=== PATIENT | female | born 1975 | race African-American/Black ===

== ENCOUNTER 2016-07-27 21:49 | Emergency (ER) | payer BC ==
[~2016-07-27] VITALS: Ht 162.6 cm; Wt 77.7 kg
[~2016-07-27 21:49] MED LIST: Aspirin E.C. PO; BENTYL20 MG PO; COLACE100 MG PO; COMPAZINE10 MG PO; Colace PO; Coreg; DESYREL12.5 MG PO; Desyrel PO; Diflucan PO; Feosol PO; LANTUS 10100 UNITS/ SQ; LANTUS 3 M100 UNITS/ SC; LANTUS 3 M100 UNITS1; LANTUS 3 M100 UNITS1 SC; LANTUS 3 M100 UNITS1 SQ; LEVOTHROID175 MCG PO; LEVOTHYROXINE112 MCG PO; LEVOXYL112 MCG PO; LOPRESSOR12.5 MG PO; LOPRESSOR25 MG PO; LOPRESSOR50 MG PO; Levaquin PO; Levothroid,Synthroid PO; Lopressor PO; NOVOLOG (UNITS1 UNIT SQ; NOVOLOG 10100 UNITS/ SC; NOVOLOG INSULIN PUMP SC; NOVOLOG MI100 UNIT/4 SC; NOVOLOG PE100 UNITS/; NOVOLOG PE100 UNITS/ SC; NOVOLOG PEN SC; NovoLOG, HumaLOG SC; PHENERGAN25 MG PR; PRINIVIL10 MG PO; PROTONIX40 MG PO; Phenergan PO; Protonix PO; REGLAN10 MG PO; Reglan PO; SIMVASTATIN10 MG PO; TAPAZOLE10 MG PO; Tapazole PO; Toprol XL PO; VITAMIN D IM; VITAMIN D10000 UNIT PO; VITAMIN D250000 UNIT PO; Vicodin,Norco 5/325 PO; ZESTRIL10 MG PO; ZOCOR10 MG PO; Zestril,Prinivil PO; Zocor PO; Zofran PO; predniSONE PO; prinivil; simvastatin; tapazole
[2016-07-27 23:14] LABS: BASOPHIL COUNT 0.1 K/uL (0-0.1); EOSINOPHIL (%) 8.5 % (0-5); EOSINOPHIL COUNT 0.7 K/uL (0-0.3); HEMATOCRIT 34.1 % (36.0-46.0); IMMATURE GRANULOCYTE (%) 0.3 % (0.0-0.7); INSTRUMENT ABS NEUTROPHIL CT 4.1 K/uL; LYMPHOCYTE COUNT 2.4 K/uL (1.0-2.8); MCH 29.7 PG (29.0-34.0); MCHC 33.7 G/DL (30.0-36.0); MCV 88.1 FL (83-99); MEAN PLAT.VOLUME 11.3 uM^3 (9.5-12.4); MONOCYTE (%) 7.4 % (3-12); MONOCYTE COUNT 0.6 K/uL (0-0.8); NEUTROPHIL (%) 51.7 % (45-76); NEUTROPHIL COUNT 4.1 K/uL (1.8-6.4); PLATELET COUNT 204 K/uL (156-360); RBC DIS.WIDTH-CV 13.2 % (11.8-14.6); RBC DIS.WIDTH-SD 42.4 % (39-53); RED BLOOD COUNT 3.87 M/uL (3.80-5.20); WHITE BLOOD COUNT 7.9 K/uL (4.1-10.2)
[2016-07-27 23:25] LABS: CHLORIDE 107 mEq/L (99-109); POTASSIUM 4.8 mEq/L (3.7-5.4); SODIUM 136 mEq/L (136-147)
[2016-07-27 23:27] LABS: GLUCOSE 182 mg/dL (70-99)
[2016-07-27 23:28] LABS: ANION GAP 10 MEQ/L (2-14)
[2016-07-27 23:31] LABS: GFR ESTIMATE (CALCULATED) > 59 mL/min/
[2016-07-27 23:32] LABS: UREA NITROGEN (BUN) 16 mg/dL (9-23)
[2016-07-27 23:39] LABS: QUANTITATIVE HCG < 4.0 MIU/ML
[2016-07-28] MEDS ORDERED: PERCOCET 5/31 TABLET PO (01:07)
[2016-07-28 02:10] VITALS: BP 179/96
== END 2016-07-28 02:12 | disposition home or self-care (01) ==
LOC: EME 21:49
PROVIDERS: Emergency Medicine
DX: R51 Headache (principal); E11.43 Type 2 diabetes mellitus with diabetic autonomic (poly)neuropathy; K31.84 Gastroparesis; G43.909 Migraine, unspecified, not intractable, without status migrainosus; E03.9 Hypothyroidism, unspecified; I42.9 Cardiomyopathy, unspecified
CPT/HCPCS: 70450; 70486; 80048; 84702; 85025; 99281; 99285; J3010

== ENCOUNTER 2016-07-29 17:30 | Emergency (ER) | payer BC ==
[~2016-07-29] VITALS: Ht 162.6 cm; Wt 76.7 kg
[~2016-07-29 17:30] MED LIST changes: +PERCOCET 5/31 TABLET PO
[2016-07-29 18:54] LABS: HEMATOCRIT 36.4 % (36.0-46.0); MCH 29.1 PG (29.0-34.0); MCHC 33.2 G/DL (30.0-36.0); MCV 87.5 FL (83-99); RBC DIS.WIDTH-CV 13.2 % (11.8-14.6); RBC DIS.WIDTH-SD 41.9 % (39-53); RED BLOOD COUNT 4.16 M/uL (3.80-5.20); WHITE BLOOD COUNT 9.1 K/uL (4.1-10.2)
[2016-07-29 19:03] LABS: CHLORIDE 105 mEq/L (99-109); POTASSIUM 4.2 mEq/L (3.7-5.4); SODIUM 137 mEq/L (136-147)
[2016-07-29 19:04] LABS: GLUCOSE 191 mg/dL (70-99)
[2016-07-29 19:06] LABS: ANION GAP 10 MEQ/L (2-14)
[2016-07-29 19:08] LABS: GFR ESTIMATE (CALCULATED) > 59 mL/min/
[2016-07-29 19:09] LABS: UREA NITROGEN (BUN) 16 mg/dL (9-23)
[2016-07-29 19:35] LABS: ERTH.SED.RATE 42 MM/HR (0-20)
[2016-07-29 19:46] LABS: MEAN PLAT.VOLUME 11.4 uM^3 (9.5-12.4); PLAT.SUFFICIENCY ADEQUATE; PLATELET COUNT 252 K/uL (156-360)
[2016-07-29 19:55] LABS: C-REACTIVE PROTEIN 1.3 MG/L (0-10)
[2016-07-29 20:05] LABS: SAMPLE HEMOLYSIS CHECK 0; SAMPLE ICTERIC CHECK 0; SAMPLE LIPEMIA CHECK 0
[2016-07-29 20:25] LABS: QUANTITATIVE HCG < 4.0 MIU/ML
[2016-07-29 20:48] VITALS: BP 166/89
== END 2016-07-29 20:57 | disposition home or self-care (01) ==
LOC: EME 17:30
PROVIDERS: Physician Assistant Medical
DX: R51 Headache (principal); R50.9 Fever, unspecified; R11.0 Nausea; H92.09 Otalgia, unspecified ear; Z79.82 Long term (current) use of aspirin
CPT/HCPCS: 80048; 84702; 85027; 85651; 86140; 99281; 99285; J1200; J1885; J2765; J7030

== ENCOUNTER 2016-07-31 20:11 | Inpatient (IN) | payer BC ==
[~2016-07-31] VITALS: Ht 162.6 cm; Wt 78.2 kg
[2016-07-31 22:19] LABS: BASOPHIL COUNT 0.1 K/uL (0-0.1); EOSINOPHIL (%) 7.6 % (0-5); EOSINOPHIL COUNT 0.8 K/uL (0-0.3); HEMATOCRIT 30.3 % (36.0-46.0); IMMATURE GRANULOCYTE (%) 0.3 % (0.0-0.7); INSTRUMENT ABS NEUTROPHIL CT 4.7 K/uL; MCH 29.3 PG (29.0-34.0); MCHC 33.7 G/DL (30.0-36.0); MCV 87.1 FL (83-99); MEAN PLAT.VOLUME 11.2 uM^3 (9.5-12.4); MONOCYTE (%) 8.1 % (3-12); MONOCYTE COUNT 0.9 K/uL (0-0.8); NEUTROPHIL (%) 45.2 % (45-76); NEUTROPHIL COUNT 4.7 K/uL (1.8-6.4); PLATELET COUNT 256 K/uL (156-360); RBC DIS.WIDTH-CV 12.8 % (11.8-14.6); RBC DIS.WIDTH-SD 40.5 % (39-53); RED BLOOD COUNT 3.48 M/uL (3.80-5.20); WHITE BLOOD COUNT 10.4 K/uL (4.1-10.2)
[2016-07-31 22:31] LABS: ERTH.SED.RATE 29 MM/HR (0-20)
[2016-07-31 22:33] LABS: POTASSIUM 3.8 mEq/L (3.7-5.4)
[2016-07-31 22:34] LABS: CHLORIDE 89 mEq/L (99-109); SODIUM 120 mEq/L (136-147)
[2016-07-31 22:35] LABS: GLUCOSE 305 mg/dL (70-99)
[2016-07-31 22:36] LABS: ANION GAP 12 MEQ/L (2-14)
[2016-07-31 22:39] LABS: GFR ESTIMATE (CALCULATED) > 59 mL/min/; UREA NITROGEN (BUN) 12 mg/dL (9-23)
[2016-07-31 23:15] LABS: C-REACTIVE PROTEIN < 1.0 MG/L (0-10)
[2016-08-01] VITALS (7 sets, daily range): BP systolic 132–193; BP diastolic 70–125
[2016-08-01 01:29] LABS: CHLORIDE 88 mEq/L (99-109); POTASSIUM 3.4 mEq/L (3.7-5.4)
[2016-08-01 01:31] LABS: GLUCOSE 294 mg/dL (70-99)
[2016-08-01 01:33] LABS: TOTAL BILIRUBIN 0.4 mg/dL (0.0-1.0)
[2016-08-01 01:34] LABS: ALKALINE PHOSPHATASE 55 IU/L (3-129)
[2016-08-01 01:35] LABS: ANION GAP 10 MEQ/L (2-14); GFR ESTIMATE (CALCULATED) > 59 mL/min/
[2016-08-01 01:36] LABS: DIRECT BILIRUBIN 0.2 mg/dL (0.0-0.3); UREA NITROGEN (BUN) 11 mg/dL (9-23)
[2016-08-01 01:41] LABS: SODIUM 118 mEq/L (136-147)
[2016-08-01 02:20] LABS: POINT-OF-CARE METER ID UU14162513
[2016-08-01 02:40] LABS: URIC ACID 4.1 mg/dL (3.1-9.2)
[2016-08-01] MEDS ORDERED: LEVOTHYROXINE200 MC1 PO ×2 (04:06→17:47)
[2016-08-01] MEDS ORDERED: PRAVACHOL10 MG PO (04:08)
[2016-08-01 04:19] LABS: ADD MIUA? YES; BILIRUBIN NEGATIVE; BLOOD LARGE; COLOR YELLOW ((YELLOW)); GLUCOSE (STRIP) >=500; KETONES 20; LEUKOCYTES NEGATIVE; NITRITE NEGATIVE; PROTEIN (STRIP) 100; SPECIFIC GRAVITY 1.007 (1.000-1.030); UROBILINOGEN 0.2 MG/DL (0.2-1.0)
[2016-08-01 04:24] LABS: BACTERIA NONE SEEN /HPF; EPITHELIAL CELLS RARE /HPF; MUCUS NONE SEEN /LPF; RED BLOOD CELLS TNTC /HPF (0-5); WHITE BLOOD CELLS 20-30 /HPF (0-5)
[2016-08-01 06:58] LABS: ANION GAP 13 MEQ/L (2-14); CHLORIDE 88 MEQ/L (99-109); GFR ESTIMATE (CALCULATED) > 59 mL/min/; GLUCOSE 341 mg/dL (70-99); SAMPLE HEMOLYSIS CHECK 1; SAMPLE ICTERIC CHECK 0; SAMPLE LIPEMIA CHECK 0; UREA NITROGEN (BUN) 11 mg/dL (9-23)
[2016-08-01 07:14] LABS: HEMATOCRIT 31.9 % (36.0-46.0); MCHC 33.9 G/DL (30.0-36.0); MCV 85.5 FL (83-99); MEAN PLAT.VOLUME 12.1 uM^3 (9.5-12.4); PLATELET COUNT 252 K/uL (156-360); RBC DIS.WIDTH-CV 12.4 % (11.8-14.6); RBC DIS.WIDTH-SD 38.5 % (39-53); RED BLOOD COUNT 3.73 M/uL (3.80-5.20); WHITE BLOOD COUNT 7.8 K/uL (4.1-10.2)
[2016-08-01 07:17] LABS: POTASSIUM 4.6 MEQ/L (3.7-5.4); SODIUM 118 MEQ/L (136-147)
[2016-08-01 08:54] LABS: POINT-OF-CARE METER ID UU14162513
[2016-08-01 12:10] LABS: ANION GAP 19 MEQ/L (2-14); CHLORIDE 87 MEQ/L (99-109); GFR ESTIMATE (CALCULATED) 58 mL/min/; GLUCOSE 439 mg/dL (70-99); POTASSIUM 3.3 MEQ/L (3.7-5.4); SAMPLE HEMOLYSIS CHECK 0; SAMPLE ICTERIC CHECK 0; SAMPLE LIPEMIA CHECK 0; SODIUM 123 MEQ/L (136-147); UREA NITROGEN (BUN) 14 mg/dL (9-23)
[2016-08-01 12:22] LABS: POINT-OF-CARE METER ID UU13113803
[2016-08-01 12:45] LABS: METH RESISTANT S AUREUS PCR NEGATIVE (NEGATIVE)
[2016-08-01 12:47] LABS: PROBE CHECK PASS; SPECIMEN PROCESSING CONTROL PASS
[2016-08-01 13:54] LABS: POINT-OF-CARE METER ID UU14162513
[2016-08-01 14:48] LABS: ANION GAP 12 MEQ/L (2-14); CHLORIDE 92 MEQ/L (99-109); SAMPLE HEMOLYSIS CHECK 0; SAMPLE ICTERIC CHECK 0; SAMPLE LIPEMIA CHECK 0; SODIUM 125 MEQ/L (136-147)
[2016-08-01 14:54] LABS: GFR ESTIMATE (CALCULATED) > 59 mL/min/; GLUCOSE 370 mg/dL (70-99); UREA NITROGEN (BUN) 16 mg/dL (9-23)
[2016-08-01 16:31] LABS: ANION GAP 9 MEQ/L (2-14); CHLORIDE 92 MEQ/L (99-109); GFR ESTIMATE (CALCULATED) > 59 mL/min/; GLUCOSE 358 mg/dL (70-99); POTASSIUM 4.8 MEQ/L (3.7-5.4); SAMPLE HEMOLYSIS CHECK 0; SAMPLE ICTERIC CHECK 0; SAMPLE LIPEMIA CHECK 0; SODIUM 123 MEQ/L (136-147); UREA NITROGEN (BUN) 17 mg/dL (9-23)
[2016-08-01 16:39] LABS: ANION GAP 12 MEQ/L (2-14); CHLORIDE 92 MEQ/L (99-109); GFR ESTIMATE (CALCULATED) > 59 mL/min/; GLUCOSE 370 mg/dL (70-99); SAMPLE HEMOLYSIS CHECK 0; SAMPLE ICTERIC CHECK 0; SAMPLE LIPEMIA CHECK 0; SODIUM 125 MEQ/L (136-147); UREA NITROGEN (BUN) 16 mg/dL (9-23)
[2016-08-01] MEDS ORDERED: LO-DOSE ASPIRIN81 M1 PO (17:50)
[2016-08-01] MEDS ORDERED: AMOX TR-K CLV1 EAC4 PO (17:52)
[2016-08-01] MEDS ORDERED: INSULIN PUMP SCCONT (17:53)
[2016-08-01 18:38] LABS: ANION GAP 12 MEQ/L (2-14); CHLORIDE 93 MEQ/L (99-109); GFR ESTIMATE (CALCULATED) > 59 mL/min/; GLUCOSE 351 mg/dL (70-99); SAMPLE HEMOLYSIS CHECK 0; SAMPLE ICTERIC CHECK 0; SAMPLE LIPEMIA CHECK 0; SODIUM 126 MEQ/L (136-147); UREA NITROGEN (BUN) 17 mg/dL (9-23)
[2016-08-01 18:54] LABS: POTASSIUM 3.8 MEQ/L (3.7-5.4)
[2016-08-01 20:15] LABS: POINT-OF-CARE METER ID UU13113731
[2016-08-01 20:56] LABS: ANION GAP 14 MEQ/L (2-14); CHLORIDE 94 MEQ/L (99-109); GFR ESTIMATE (CALCULATED) > 59 mL/min/; GLUCOSE 359 mg/dL (70-99); POTASSIUM 3.9 MEQ/L (3.7-5.4); SAMPLE HEMOLYSIS CHECK 0; SAMPLE ICTERIC CHECK 0; SAMPLE LIPEMIA CHECK 0; SODIUM 128 MEQ/L (136-147); UREA NITROGEN (BUN) 17 mg/dL (9-23)
[2016-08-01 22:20] LABS: ANION GAP 13 MEQ/L (2-14); CHLORIDE 94 MEQ/L (99-109); GFR ESTIMATE (CALCULATED) > 59 mL/min/; GLUCOSE 305 mg/dL (70-99); POTASSIUM 3.8 MEQ/L (3.7-5.4); SAMPLE HEMOLYSIS CHECK 0; SAMPLE ICTERIC CHECK 0; SAMPLE LIPEMIA CHECK 0; SODIUM 126 MEQ/L (136-147); UREA NITROGEN (BUN) 17 mg/dL (9-23)
[2016-08-02] VITALS (7 sets, daily range): BP systolic 143–187; BP diastolic 75–93
[2016-08-02 01:18] LABS: POTASSIUM 3.8 mEq/L (3.7-5.4); SODIUM 130 mEq/L (136-147)
[2016-08-02 01:20] LABS: GLUCOSE 321 mg/dL (70-99)
[2016-08-02 01:21] LABS: ANION GAP 12 MEQ/L (2-14); CHLORIDE 98 mEq/L (99-109)
[2016-08-02 01:24] LABS: GFR ESTIMATE (CALCULATED) > 59 mL/min/
[2016-08-02 01:25] LABS: UREA NITROGEN (BUN) 17 mg/dL (9-23)
[2016-08-02 03:00] LABS: CHLORIDE 98 mEq/L (99-109); POTASSIUM 3.9 mEq/L (3.7-5.4); SODIUM 130 mEq/L (136-147)
[2016-08-02 03:01] LABS: GLUCOSE 292 mg/dL (70-99)
[2016-08-02 03:03] LABS: ANION GAP 12 MEQ/L (2-14)
[2016-08-02 03:05] LABS: GFR ESTIMATE (CALCULATED) > 59 mL/min/
[2016-08-02 03:06] LABS: UREA NITROGEN (BUN) 17 mg/dL (9-23)
[2016-08-02 05:50] LABS: EOSINOPHIL (%) 0 % (0-5); HEMATOCRIT 30.6 % (36.0-46.0); IMMATURE GRANULOCYTE (%) 0.2 % (0.0-0.7); INSTRUMENT ABS NEUTROPHIL CT 6.4 K/uL; LYMPHOCYTE COUNT 1.2 K/uL (1.0-2.8); MCH 28.7 PG (29.0-34.0); MCV 84.5 FL (83-99); MEAN PLAT.VOLUME 11.2 uM^3 (9.5-12.4); MONOCYTE (%) 6.5 % (3-12); MONOCYTE COUNT 0.5 K/uL (0-0.8); NEUTROPHIL (%) 78.5 % (45-76); NEUTROPHIL COUNT 6.4 K/uL (1.8-6.4); PLATELET COUNT 252 K/uL (156-360); RBC DIS.WIDTH-CV 12.5 % (11.8-14.6); RED BLOOD COUNT 3.62 M/uL (3.80-5.20); WHITE BLOOD COUNT 8.2 K/uL (4.1-10.2)
[2016-08-02 06:13] LABS: ANION GAP 11 MEQ/L (2-14); CHLORIDE 97 MEQ/L (99-109); GFR ESTIMATE (CALCULATED) > 59 mL/min/; GLUCOSE 289 mg/dL (70-99); POTASSIUM 3.9 MEQ/L (3.7-5.4); SAMPLE HEMOLYSIS CHECK 0; SAMPLE ICTERIC CHECK 0; SAMPLE LIPEMIA CHECK 0; SODIUM 131 MEQ/L (136-147); UREA NITROGEN (BUN) 17 mg/dL (9-23)
[2016-08-02 09:07] LABS: ANION GAP 9 MEQ/L (2-14); CHLORIDE 98 MEQ/L (99-109); GFR ESTIMATE (CALCULATED) > 59 mL/min/; GLUCOSE 239 mg/dL (70-99); SAMPLE HEMOLYSIS CHECK 0; SAMPLE ICTERIC CHECK 0; SAMPLE LIPEMIA CHECK 0; SODIUM 132 MEQ/L (136-147); UREA NITROGEN (BUN) 17 mg/dL (9-23)
[2016-08-02 11:33] LABS: POINT-OF-CARE METER ID UU13113731
[2016-08-02 23:55] LABS: POINT-OF-CARE METER ID UU14174217
[2016-08-03] VITALS (13 sets, daily range): BP systolic 0–177; BP diastolic 0–103
[2016-08-03 06:28] LABS: EOSINOPHIL (%) 0 % (0-5); HEMATOCRIT 29.3 % (36.0-46.0); IMMATURE GRANULOCYTE (%) 0.4 % (0.0-0.7); LYMPHOCYTE COUNT 1.2 K/uL (1.0-2.8); MCH 29.5 PG (29.0-34.0); MCHC 33.8 G/DL (30.0-36.0); MCV 87.2 FL (83-99); MONOCYTE (%) 7.3 % (3-12); MONOCYTE COUNT 0.8 K/uL (0-0.8); NEUTROPHIL (%) 81.6 % (45-76); PLATELET COUNT 260 K/uL (156-360); RBC DIS.WIDTH-CV 13.3 % (11.8-14.6); RBC DIS.WIDTH-SD 41.5 % (39-53); RED BLOOD COUNT 3.36 M/uL (3.80-5.20)
[2016-08-03 07:07] LABS: ANION GAP 10 MEQ/L (2-14); CHLORIDE 101 MEQ/L (99-109); GFR ESTIMATE (CALCULATED) > 59 mL/min/; GLUCOSE 244 mg/dL (70-99); SAMPLE HEMOLYSIS CHECK 0; SAMPLE ICTERIC CHECK 0; SAMPLE LIPEMIA CHECK 0; SODIUM 135 MEQ/L (136-147); UREA NITROGEN (BUN) 17 mg/dL (9-23)
[2016-08-03 11:53] LABS: POINT-OF-CARE METER ID UU13113731
[2016-08-03 16:55] LABS: POINT-OF-CARE METER ID UU14174216
[2016-08-03 21:00] LABS: POINT-OF-CARE METER ID UU14174216
[2016-08-04 00:23] LABS: ADD MIUA? YES; BILIRUBIN NEGATIVE; BLOOD MODERATE; COLOR YELLOW ((YELLOW)); GLUCOSE (STRIP) 150; KETONES 20; LEUKOCYTES NEGATIVE; NITRITE NEGATIVE; PROTEIN (STRIP) >=500; SPECIFIC GRAVITY 1.016 (1.000-1.030); UROBILINOGEN 0.2 MG/DL (0.2-1.0)
[2016-08-04 00:29] LABS: BACTERIA NONE SEEN /HPF; EPITHELIAL CELLS NONE SEEN /HPF; MUCUS NONE SEEN /LPF; RED BLOOD CELLS TNTC /HPF (0-5); WHITE BLOOD CELLS 0-5 /HPF (0-5)
[2016-08-04 05:16] VITALS: BP 171/85
[2016-08-04 06:41] LABS: EOSINOPHIL (%) 0 % (0-5); HEMATOCRIT 27.2 % (36.0-46.0); IMMATURE GRANULOCYTE (%) 0.5 % (0.0-0.7); IMMATURE GRANULOCYTE COUNT 0.1 K/uL; INSTRUMENT ABS NEUTROPHIL CT 8.9 K/uL; LYMPHOCYTE COUNT 1.3 K/uL (1.0-2.8); MCH 29.9 PG (29.0-34.0); MCHC 33.5 G/DL (30.0-36.0); MCV 89.5 FL (83-99); MEAN PLAT.VOLUME 10.9 uM^3 (9.5-12.4); MONOCYTE (%) 6.6 % (3-12); MONOCYTE COUNT 0.7 K/uL (0-0.8); NEUTROPHIL COUNT 8.9 K/uL (1.8-6.4); PLATELET COUNT 261 K/uL (156-360); RBC DIS.WIDTH-CV 13.7 % (11.8-14.6); RBC DIS.WIDTH-SD 44.7 % (39-53); RED BLOOD COUNT 3.04 M/uL (3.80-5.20)
[2016-08-04 07:05] LABS: ANION GAP 11 MEQ/L (2-14); CHLORIDE 101 MEQ/L (99-109); GFR ESTIMATE (CALCULATED) > 59 mL/min/; GLUCOSE 299 mg/dL (70-99); SAMPLE HEMOLYSIS CHECK 0; SAMPLE ICTERIC CHECK 0; SAMPLE LIPEMIA CHECK 0; SODIUM 136 MEQ/L (136-147); UREA NITROGEN (BUN) 21 mg/dL (9-23)
[2016-08-04 08:05] LABS: POINT-OF-CARE METER ID UU14174216
[2016-08-04 11:05] LABS: POINT-OF-CARE METER ID UU14174216
[2016-08-04 12:16] VITALS: BP 141/68
[2016-08-04 16:52] LABS: POINT-OF-CARE METER ID UU13113781
[2016-08-04 17:30] VITALS: BP 170/81
[2016-08-04 19:30] VITALS: BP 127/65
[2016-08-05] VITALS (7 sets, daily range): BP systolic 140–194; BP diastolic 76–93
[2016-08-05 07:32] LABS: HEMATOCRIT 30.4 % (36.0-46.0); MCH 29.5 PG (29.0-34.0); MCHC 32.9 G/DL (30.0-36.0); MCV 89.7 FL (83-99); MEAN PLAT.VOLUME 10.8 uM^3 (9.5-12.4); PLATELET COUNT 331 K/uL (156-360); RBC DIS.WIDTH-CV 13.7 % (11.8-14.6); RBC DIS.WIDTH-SD 44.8 % (39-53); RED BLOOD COUNT 3.39 M/uL (3.80-5.20); WHITE BLOOD COUNT 10.9 K/uL (4.1-10.2)
[2016-08-05 08:46] LABS: ALKALINE PHOSPHATASE 48 IU/L (3-129); ANION GAP 9 MEQ/L (2-14); CHLORIDE 102 MEQ/L (99-109); Estimated Average Glucose 203 mg/dL (70-123); GFR ESTIMATE (CALCULATED) > 59 mL/min/; GLUCOSE 193 mg/dL (70-99); IRON 29 MCG/DL (35-150); SAMPLE HEMOLYSIS CHECK 0; SAMPLE ICTERIC CHECK 0; SAMPLE LIPEMIA CHECK 0; SODIUM 138 MEQ/L (136-147); TOTAL BILIRUBIN 0.2 MG/DL (0.0-1.0); UREA NITROGEN (BUN) 22 mg/dL (9-23)
[2016-08-05 09:01] LABS: FERRITIN 14 NG/ML (10-291)
[2016-08-05 09:04] LABS: HEMOGLOBIN A1c (GLYCOHEMOGLOB) 8.7 % HGB (Below 5.7)
[2016-08-06 00:02] LABS: POINT-OF-CARE METER ID UU13113781
[2016-08-06 04:11] VITALS: BP 173/83
[2016-08-06 07:30] LABS: HEMATOCRIT 28.5 % (36.0-46.0); MCH 29.5 PG (29.0-34.0); MCHC 32.3 G/DL (30.0-36.0); MCV 91.3 FL (83-99); MEAN PLAT.VOLUME 10.8 uM^3 (9.5-12.4); PLATELET COUNT 335 K/uL (156-360); RBC DIS.WIDTH-CV 13.9 % (11.8-14.6); RBC DIS.WIDTH-SD 46.4 % (39-53); RED BLOOD COUNT 3.12 M/uL (3.80-5.20); WHITE BLOOD COUNT 8.3 K/uL (4.1-10.2)
[2016-08-06 07:56] LABS: ALKALINE PHOSPHATASE 40 IU/L (3-129); ANION GAP 8 MEQ/L (2-14); CHLORIDE 102 MEQ/L (99-109); GFR ESTIMATE (CALCULATED) > 59 mL/min/; GLUCOSE 176 mg/dL (70-99); POTASSIUM 3.9 MEQ/L (3.7-5.4); SAMPLE HEMOLYSIS CHECK 0; SAMPLE ICTERIC CHECK 0; SAMPLE LIPEMIA CHECK 0; SODIUM 137 MEQ/L (136-147); TOTAL BILIRUBIN 0.2 MG/DL (0.0-1.0); UREA NITROGEN (BUN) 27 mg/dL (9-23)
[2016-08-06 08:30] VITALS: BP 182/90
[2016-08-06 09:32] VITALS: BP 164/78
[2016-08-06 12:16] VITALS: BP 173/82
[2016-08-06 16:29] VITALS: BP 178/82
[2016-08-06 19:46] VITALS: BP 155/79
[2016-08-07] VITALS (7 sets, daily range): BP systolic 136–166; BP diastolic 67–87
[2016-08-07 00:27] LABS: POINT-OF-CARE METER ID UU14188577
[2016-08-07 04:53] LABS: HEMATOCRIT 28.9 % (36.0-46.0); MCH 28.7 PG (29.0-34.0); MCHC 31.8 G/DL (30.0-36.0); MEAN PLAT.VOLUME 10.5 uM^3 (9.5-12.4); PLATELET COUNT 365 K/uL (156-360); RBC DIS.WIDTH-CV 13.4 % (11.8-14.6); RBC DIS.WIDTH-SD 44.3 % (39-53); RED BLOOD COUNT 3.21 M/uL (3.80-5.20); WHITE BLOOD COUNT 8.3 K/uL (4.1-10.2)
[2016-08-07 05:03] LABS: CHLORIDE 102 mEq/L (99-109); POTASSIUM 4.4 mEq/L (3.7-5.4); SODIUM 136 mEq/L (136-147)
[2016-08-07 05:05] LABS: GLUCOSE 230 mg/dL (70-99)
[2016-08-07 05:07] LABS: ANION GAP 10 MEQ/L (2-14)
[2016-08-07 05:09] LABS: ALKALINE PHOSPHATASE 41 IU/L (3-129); GFR ESTIMATE (CALCULATED) > 59 mL/min/
[2016-08-07 05:10] LABS: UREA NITROGEN (BUN) 22 mg/dL (9-23)
[2016-08-07 05:17] LABS: TOTAL BILIRUBIN 0.2 mg/dL (0.0-1.0)
[2016-08-07 12:14] LABS: POINT-OF-CARE METER ID UU14149397
[2016-08-07 18:21] LABS: POINT-OF-CARE METER ID UU14149397
[2016-08-08 00:32] LABS: POINT-OF-CARE METER ID UU14149397
[2016-08-08 03:43] VITALS: BP 118/56
[2016-08-08 06:27] LABS: HEMATOCRIT 26.6 % (36.0-46.0); MCV 90.8 FL (83-99); MEAN PLAT.VOLUME 10.5 uM^3 (9.5-12.4); PLATELET COUNT 365 K/uL (156-360); RBC DIS.WIDTH-CV 13.3 % (11.8-14.6); RBC DIS.WIDTH-SD 44.4 % (39-53); RED BLOOD COUNT 2.93 M/uL (3.80-5.20); WHITE BLOOD COUNT 10.5 K/uL (4.1-10.2)
[2016-08-08 06:50] LABS: ALKALINE PHOSPHATASE 38 IU/L (3-129); ANION GAP 6 MEQ/L (2-14); CHLORIDE 101 MEQ/L (99-109); GFR ESTIMATE (CALCULATED) > 59 mL/min/; GLUCOSE 155 mg/dL (70-99); SAMPLE HEMOLYSIS CHECK 0; SAMPLE ICTERIC CHECK 0; SAMPLE LIPEMIA CHECK 0; SODIUM 138 MEQ/L (136-147); TOTAL BILIRUBIN 0.2 MG/DL (0.0-1.0); UREA NITROGEN (BUN) 16 mg/dL (9-23)
[2016-08-08 06:51] LABS: POTASSIUM 3.5 MEQ/L (3.7-5.4)
[2016-08-08 08:04] VITALS: BP 180/86
[2016-08-08 12:27] LABS: POINT-OF-CARE METER ID UU14149397
[2016-08-08 16:39] VITALS: BP 167/83
[2016-08-08 20:00] VITALS: BP 151/69
[2016-08-09 00:24] VITALS: BP 126/58
[2016-08-09 03:35] VITALS: BP 135/65
[2016-08-09 07:37] VITALS: BP 144/73
[2016-08-09 11:20] VITALS: BP 147/76
[2016-08-09 11:48] LABS: POINT-OF-CARE METER ID UU14188577
[2016-08-09] MEDS ORDERED: LOSARTAN POTASS25 MG PO (16:04)
[2016-08-09] MEDS ORDERED: NIFEDIPINE ER30 MG PO (16:04)
[2016-08-09] MEDS ORDERED: METOCLOPRAMIDE10 MG PO (16:05)
[2016-08-09] MEDS ORDERED: PANTOPRAZOLE SO40 MG PO (16:05)
[2016-08-09] MEDS ORDERED: TRANSDERM-SCO1 PATCH TD (16:05)
[2016-08-09] MEDS ORDERED: PREDNISONE20 MG PO (16:06)
== END 2016-08-09 18:42 | disposition home or self-care (01) | DRG 74 ==
LOC: EME 20:11 → EDOF 08-01 00:33 → 5WEST 08-01 01:47 → 4WEST 08-01 07:26 → 5WEST 08-01 10:20 → 4WEST 08-01 11:07 → 4EAST 08-03 16:23 → 3EAST 08-06 18:51
PROVIDERS: Hospitalist; Internal Medicine; Internal Medicine Nephrology; Nurse Practitioner Adult Health; Physician Assistant
DX: E10.43 Type 1 diabetes mellitus with diabetic autonomic (poly)neuropathy (principal); K31.84 Gastroparesis; G50.0 Trigeminal neuralgia; E87.1 Hypo-osmolality and hyponatremia; E87.2 Acidosis; R63.1 Polydipsia; Z96.41 Presence of insulin pump (external) (internal); E87.6 Hypokalemia; I10 Essential (primary) hypertension; I42.9 Cardiomyopathy, unspecified; E78.5 Hyperlipidemia, unspecified; E89.0 Postprocedural hypothyroidism; D50.9 Iron deficiency anemia, unspecified; E66.9 Obesity, unspecified; Z68.29 Body mass index [BMI] 29.0-29.9, adult; Z88.5 Allergy status to narcotic agent; Z79.4 Long term (current) use of insulin
CPT/HCPCS: 70551; 71010; 74000; 74177; 80048; 80048 91; 80053; 80076; 81003; 82436; 82607; 82728; 82746; 82948; 83036; 83540; 83605; 83735; 83930; 83935; 84100; 84133; 84300; 84443; 84466; 84550; 84702; 85025; 85027; 85651; 86140; 87641; 93005; 99281; 99285; C9113; J0360; J0610; J1170; J1200; J1644; J1815; J1885; J2060; J2270; J2405; J2550; J2765; J2920; J2930; J3480; J7030; J7050; J7512

== ENCOUNTER 2016-08-12 15:59 | Emergency (ER) | payer BC ==
[~2016-08-12] VITALS: Ht 162.6 cm; Wt 76.3 kg
[~2016-08-12 15:59] MED LIST changes: +AMOX TR-K CLV1 EAC4 PO; +INSULIN PUMP SCCONT; +LEVOTHYROXINE200 MC1 PO; +LO-DOSE ASPIRIN81 M1 PO; +LOSARTAN POTASS25 MG PO; +METOCLOPRAMIDE10 MG PO; +NIFEDIPINE ER30 MG PO; +PANTOPRAZOLE SO40 MG PO; +PRAVACHOL10 MG PO; +PREDNISONE20 MG PO; +TRANSDERM-SCO1 PATCH TD
[2016-08-12 16:48] LABS: EOSINOPHIL (%) 2.6 % (0-5); EOSINOPHIL COUNT 0.3 K/uL (0-0.3); HEMATOCRIT 32.1 % (36.0-46.0); IMMATURE GRANULOCYTE (%) 0.3 % (0.0-0.7); INSTRUMENT ABS NEUTROPHIL CT 8.6 K/uL; LYMPHOCYTE COUNT 1.6 K/uL (1.0-2.8); MCH 28.6 PG (29.0-34.0); MCHC 31.8 G/DL (30.0-36.0); MCV 89.9 FL (83-99); MONOCYTE (%) 3.7 % (3-12); MONOCYTE COUNT 0.4 K/uL (0-0.8); NEUTROPHIL (%) 78.9 % (45-76); NEUTROPHIL COUNT 8.6 K/uL (1.8-6.4); PLATELET COUNT 399 K/uL (156-360); RBC DIS.WIDTH-CV 13.4 % (11.8-14.6); RBC DIS.WIDTH-SD 44.3 % (39-53)
[2016-08-12 16:52] LABS: RED BLOOD COUNT 3.57 M/uL (3.80-5.20)
[2016-08-12 16:58] LABS: CHLORIDE 98 mEq/L (99-109); POTASSIUM 3.8 mEq/L (3.7-5.4); SODIUM 138 mEq/L (136-147)
[2016-08-12 17:00] LABS: GLUCOSE 226 mg/dL (70-99)
[2016-08-12 17:02] LABS: ANION GAP 12 MEQ/L (2-14)
[2016-08-12 17:03] LABS: TOTAL BILIRUBIN 0.3 mg/dL (0.0-1.0)
[2016-08-12 17:04] LABS: ALKALINE PHOSPHATASE 47 IU/L (3-129); GFR ESTIMATE (CALCULATED) > 59 mL/min/
[2016-08-12 17:05] LABS: UREA NITROGEN (BUN) 11 mg/dL (9-23)
[2016-08-12 17:07] LABS: LIPASE 39 U/L (1.0-51.0)
[2016-08-12 17:13] LABS: QUANTITATIVE HCG < 4.0 MIU/ML
[2016-08-12 18:59] LABS: ADD MIUA? YES; BILIRUBIN NEGATIVE; BLOOD NEGATIVE; COLOR STRAW ((YELLOW)); GLUCOSE (STRIP) NEGATIVE; KETONES NEGATIVE; LEUKOCYTES TRACE; NITRITE NEGATIVE; PROTEIN (STRIP) 100; SPECIFIC GRAVITY 1.008 (1.000-1.030); UROBILINOGEN 0.2 MG/DL (0.2-1.0)
[2016-08-12 19:05] LABS: BACTERIA RARE /HPF; EPITHELIAL CELLS RARE /HPF; MUCUS TRACE /LPF; RED BLOOD CELLS 0-5 /HPF (0-5); UCUL ADDED? NO; WHITE BLOOD CELLS 0-5 /HPF (0-5)
[2016-08-12] MEDS ORDERED: ZOFRAN4 MG PO (19:45)
[2016-08-12 19:59] VITALS: BP 159/91
== END 2016-08-12 20:02 | disposition home or self-care (01) ==
LOC: EME 15:59
PROVIDERS: Emergency Medicine
DX: K31.84 Gastroparesis (principal); E11.9 Type 2 diabetes mellitus without complications; Z96.41 Presence of insulin pump (external) (internal); Z79.4 Long term (current) use of insulin
CPT/HCPCS: 74177; 80053; 81003; 83690; 84702; 85025; 99281; 99285; J1630; J7030